=== PATIENT | female | born 1985 | race Two or more races ===

== ENCOUNTER 2024-06-14 09:29 | Emergency (ER) | payer BC, SELFPAY ==
[2024-06-14 09:47] VITALS: BP 143/103; PULSE 145; RESP 18; TEMP 37.3; O2SAT 98; BMI 30.6
--- NOTE | 2024-06-14 09:53 | XR_ITS ---
Examination: AP chest single view Technique one AP portable upright chest single view Exam date and time: June 14, 2024 1150 hours Comparison March 11, 2019 INDICATIONS: Onset chest pain today FINDINGS: Normal heart size. Lungs are clear. The osseous structures are intact IMPRESSION: No active disease
[2024-06-14 10:07] VITALS: PULSE 134
[2024-06-14 10:34] LABS: Basophils % (Auto) 0 % (0-2.5); Eosinophils # (Auto) 0.2 Thou/mm3 (0.0-0.5); Eosinophils % (Auto) 3 % (0-10); Hematocrit 43.8 % (36.0-46.0); Hemoglobin 14.9 g/dL (12.0-16.0); Immature Granulocytes % (Auto) 0 % (0-0); Immature Granulocytes Auto 0.02 Thou/mm3 (0.00-0.00); Lymphocytes # (Auto) 1.3 Thou/mm3 (1.0-4.8); Lymphocytes % (Auto) 20 % (10-50); Mean Corpuscular Hemoglobin 28.2 pg (25.0-35.0); Mean Corpuscular Volume 83 fL (80-100); Monocytes # (Auto) 0.4 Thou/mm3 (0.0-0.8); Monocytes % (Auto) 7 % (0-12); Neutrophils # (Auto) 4.7 Thou/mm3 (1.8-7.7); Neutrophils % (Auto) 71 % (37-80); Nucleated Red Blood Cell % 0 /100 WBC (0); Platelet Count 290 Thou/mm3 (140-440); Red Blood Count 5.28 Miln/mm3 (4.00-5.20); White Blood Count 6.7 Thou/mm3 (3.6-11.0)
--- NOTE | 2024-06-14 10:34 | EDNOTE_ITS ---
ED Psych RME/HPI General Chief Complaint: Suicidal Stated Complaint: SI; ON MEDICATION FOR SUICIDAL THOUGHTS Arrival date/time: 06/14/24 09:29 Limitations: no limitations RME / HPI RME / HPI Narrative: DR. FORREST MAIN ED EVALUATION: 38 year old female with past medical history significant for depression, takes zoloft and trazodone presents to the Emergency Department [facility] with complaints of depression and suicidal ideation, thoughts but no plan . Patient also reports palpitations and anxiety. She currently sees a therapist and psychiatrist, she saw her therapist last week. She lives with her and 2 kids. No visual hallucinations or auditory hallucinations. No other symptoms reported at this time. Currently on her menses. Other PMHx includes hypertension. Patient denies any tobacco, alcohol, or substance use. Related Data Home Medications ?Medication ?Instructions ?Recorded ?Confirmed methimazole 5 mg tablet 5 mg PO QDAY 04/13/20 propranolol 20 mg tablet 20 mg PO QDAY 04/13/2004/13 atenolol 100 mg tablet 100 mg PO BID 06/14/2406/14 sertraline 25 mg tablet 25 mg PO Q24H 06/14/2406/14 Allergies Allergy/AdvReac Type Severity Reaction Status Date / Time No Known Allergies Allergy Verified 06/14/24 09:32 Review of Systems Review of Systems Systems Reviewed: All systems reviewed, normal except as documented Narrative Review of Systems: GEN: No fever, no chills, no weight loss EYES: No discharge, no visual changes, no pain HEENT: No ear pain, no congestion, no sore throat PULM: No shortness of breath, no cough, no congestion CV: No chest pain, no dyspnea on exertion, + palpitations GI: No nausea, no vomiting, no diarrhea, no pain, no constipation : No frequency, no urgency and no dysuria MUSC/SKEL: No joint pain, no back pain SKIN: No rash PSYCH: No hallucinations, + depression, + suicidal ideation, + anxiety HEME/LYMPH: No easy bleeding or bruising tendencies NEURO: No weakness, no headache Past Medical History Past Medical History CARDIAC: Positive Cardiac Disorders (TACHYCARDIA DUE TO THYROID) and Hypertension (TAKES MED) GASTROINTESTINAL: Positive Gastrointestinal Disorders, Hiatal Hernia (IN THE PAST) and Gastroesophageal Reflux Disease (IN THE PAST) REPRODUCTIVE: Positive Previous Pregnancies (X2) MUSCULOSKELETAL: Positive Fractures (LEFT ARM HAD CAST) ENDOCRINE: Positive Endocrine Disorders and Hyperthyroidism PSYCHO/SOCIAL: Positive Depression (NO MEDS AT THIS TIME) OTHER HISTORY: Positive Chicken Pox and Cancer (POSSIBLE THYROID CA) Family History FAMILY HISTORY: Positive Family Psychiatric Problems (MOTHER, BROTHER (DEPRESSION,ANXIETY)), Family Respiratory Disorders (MOTHER (ASTHMA)), Family C ardiac Disorders (MOTHER,FATHER, BROTHER (HTN)) and Family Surgery (MOTHER) Surgical History SURGICAL: Positive Tubal Ligation Social History SMOKING STATUS: Never smoker SUBSTANCE USE: does not use ALCOHOL: Never ED Exam General Limitations: Present no limitations General appearance: Present alert, in no apparent distress and anxious Head Head exam: Present atraumatic, normocephalic and normal inspection Eye Eye exam: Present normal appearance, PERRL and EOMI ENT ENT exam: Present normal exam, normal oropharynx and mucous membranes moist Neck Neck exam: Present normal inspection, full ROM and trachea midline Chest Chest inspection: Present normal inspection and symmetric chest wall rise Respiratory Respiratory exam: Present normal lung sounds bilaterally Cardiovascular Cardiovascular exam: Present regular rate, normal rhythm and normal heart sounds Abdominal Exam Abdominal exam: Present soft and normal bowel sounds Extremities Exam Extremities exam: Present normal inspection and full ROM Back Exam Back exam: Present normal inspection and full ROM Neurological Exam Neurological exam: Present alert, oriented X3 and CN II-XII intact Psychiatric Psychiatric exam: Present depressed and anxious Skin Skin exam: Present warm, dry, intact and normal color Course Quality Measures none Orders Category Date Time Status Family Resource Management Professor NOW Care 06/14/24 09:53 Active EKG (ED ONLY) *Do not use* NOW Care 06/14/24 09:53 Completed Insert IV NOW Care 06/14/24 09:53 Active Diet Regular Diet 06/14/24 Lunch Active Discharge Routine Discharge 06/14/24 14:19 Active EKG (ED Only) Stat Exams 06/14/24 09:53 Ordered XR chest 1V portable Stat Exams 06/14/24 09:53 Completed Alcohol, Urine Stat Lab 06/14/24 10:49 Completed CBC Stat Lab 06/14/24 10:22 Completed Comprehensive Metabolic Panel Stat Lab 06/14/24 10:22 Completed Drug Screen,Urine Stat Lab 06/14/24 10:49 Completed Free T4 (Free Thyroxine) Stat Lab 06/14/24 10:22 Completed HCG Qualitative,Urine Stat Lab 06/14/24 10:49 Completed TSH [Thyroid Stimulating Hormone] Stat Lab 06/14/24 10:22 Completed Troponin I Stat Lab 06/14/24 10:22 Completed Sodium Chloride 0.9% 1000 ml [Ns] 1,000 ml Med 06/14/24 09:54 Discontinued IV 999 mls/hr Reevaluation(s) Reevaluation #1: Patient is medically cleared. Time: 11:43 Reevaluation #2: Mental health cleared the patient to go home. Safety plan in place including the will take this week off from work to support and patient has follow up appointment Friday with mental [facility]. Time: 14:17 Vital Signs Vital signs: Vital Signs Temperature 99.2 F 06/14/24 09:47 Pulse Rate 145 H 06/14/24 09:47 Respiratory Rate 18 06/14/24 09:47 Blood Pressure 143/103 H 06/14/24 09:47 Pulse Oximetry (%) 98 06/14/24 09:47 Oxygen Delivery Method Room Air 06/14/24 09:47 Procedures -ED EKG Interpretation #1: Date of EK06/14/24 Time of EK:51 Rate: 135 Interpretation: Interpreted by me Additional EKG comment: sinus tachycardia, rate 135, no ischemia, normal intervals Psych MDM Narrative MDM Narrative:: I, Kylah Arias am scribing for and in the presence of Dr. Forrest. Patient was seen by mental health Patient was cleared by [facility] She does live with her who is engaged to stay with her To bring her back again to the follow-up with the health as outpatient And to stay with her at this time Patient was accepting to follow-up with mental health Patient data External records reviewed:: EMS form Clinical information provided by:: patient and EMS Social determinants that could affect healthcare access:: none Patient has the following chronic illnesses:: Depression, takes zoloft and trazodone, and hypertension. How is presenting disease/condition affected by chronic disease/condition?: caused by Evaluation data The following diagnostics were reviewed and interpreted by me:: lab results, radiology exam(s) and EKG tracing(s) Lab and/or radiology exams considered but not ordered:: none Interpretation Summary: Procedure(s): XR chest 1V portable Accession Number(s): [id number] cc: Usman (BUYER ASSISTANT),Rafa LISA; Andrei Marin MD; Kristofer Salomon MD~ Examination: AP chest single view Technique one AP portable upright chest single view Exam date and time: June 14, 2024 1150 hours Comparison March 11, 2019 INDICATIONS: Onset chest pain today FINDINGS: Normal heart size. Lungs are clear. The osseous structures are intact IMPRESSION: No active disease Dictated By: Andrei Marin MD Medications / Prescriptions Medications or Prescriptions considered but not ordered:: none Medication administrations:: Medication Administration History Discontinued Medications Sodium Chloride (Ns) 1,000 mls @ 999 mls/hr IV .Q1H1M ONE Stop: 06/14/24 10:54 Last Infusion: 06/14/24 11:48 Dose: Infused Documented By: Admin: 06/14/24 10:40 Dose: 999 mls/hr Documented By: OMAR see above Consultations Consultation(s) initiated? (list below): No Diagnosis Psych Differential Diagnosis: suicidal ideation, depression and acute anxiety Most likely diagnosis given after review of the tests above:: Depression Anxiety Admission Indicated Admission indicated?: not indicated Admission Request Was there a request for admission?: No Disposition Plan Disposition Plan: Discharge Discharge Attestation Discharge Attestation: The patient and all family members were given an opportunity to ask questions and understood the discharge instructions. Discharge instructions specifically effects, indications for sooner follow up or return to the emergency department, and the expected course of current diagnosis. Patient condition: Stable Discharge Plan Plan Patient Disposition: HOME (Self Care) Patient condition on transfer: Stable Prescriptions/Referrals Prescriptions/Med Rec: No Action methimazole 5 mg Tablet 5 mg PO QDAY propranolol 20 mg tablet 20 mg PO QDAY sertraline 25 mg tablet 25 mg PO Q24H Patient Comments: take 1 AND 1/2 tablet by mouth IN THE MORNING with food to AVOID GI UPSET atenolol 100 mg tablet 100 mg PO BID Patient Comments: take 1 tablet by mouth twice a day Referrals: Kristofer Salomon MD [Primary Care Provider] - In 1 week Problem List Clinical Impression: Depression, Anxiety, Suicidal ideation Patient/Caregiver Discharge Instructions Discharge Activity: activity as tolerated and other Other Activity Instructions:: Make sure to follow the instructions given to you by mental health Make sure to have your spouse with you until further evaluation is done by mental health Print Language: Azeri Stand Alone Forms: Rosmery Award Info., Work/School Release, Patient Portal Info Letter
[2024-06-14] MEDS: SODIUM CHLORIDE 0.9% 1000 ML 1,000 ML 999 ML IV (10:40)
[2024-06-14 10:58] LABS: Alanine Aminotransferase 20 U/L (10-49); Albumin, Serum 4.9 gm/dL (3.5-5.0); Albumin/Globulin Ratio 1.6 (1.2-2.2); Alkaline Phosphatase 91 U/L (46-116); Anion Gap 10 (7-16); Aspartate Amino Transferase 21 U/L (0-34); BUN/Creatinine Ratio 16 Ratio (12-20); Bilirubin,Total 0.5 mg/dL (0.3-1.2); Blood Urea Nitrogen 13 mg/dL (9-23); Calcium 9.5 mg/dL (8.3-10.6); Calcium (Corrected) 9.5 mg/dL (8.5-10.1); Chloride 105 mMol/L (98-107); Creatinine (Component) 0.8 mg/dL (0.6-1.3); Estimated Creatinine Clearance 80.4 mL/min (>60); Free T4 (Free Thyroxine) 1.13 ng/dL (0.89-1.76); Globulin 3.1 gm/dL (2.3-3.5); Glucose 89 mg/dL (74-106); Osmolality,Calculated 280 (275-295); Potassium 3.7 mMol/L (3.4-5.1); Sodium 141 mMol/L (136-145); Thyroid Stimulating Hormone 0.63 uIU/mL (0.55-4.78); Troponin I < 0.002 ng/mL (0.0-0.045); eGFR > 60 See Note
[2024-06-14 11:27] LABS: HCG Qualitative,Urine Negative
[2024-06-14 11:46] LABS: Alcohol, Urine Negative (Negative); Amphetamine/Methamp Scrn,U Negative (Negative); Barbiturate Screen,Urine Negative (Negative); Benzodiazepines Screen,Urine Negative (Negative); Benzoylecgonine Screen, Ur Negative (Negative); Fentanyl Screen,Urine Negative (Negative); Opiate Screen,Urine Negative (Negative); THC Screen,Urine Negative (Negative)
[2024-06-14 12:00] VITALS: BP 134/101; PULSE 102; RESP 16; O2SAT 100
[2024-06-14 13:31] VITALS: BP 136/98; PULSE 85; RESP 15; TEMP 36.4; O2SAT 98
--- NOTE | 2024-06-14 13:42 | PC.SS ---
IRVIN Camejo, met with the patient to complete a mental health evaluation. The patient appears alert and oriented to person, place and situation. Also present in the room is MOBILE GAME ENGINEER Student, Adilia Albert and patient's spouse, Zhen Sanchez as the patient allowed him to be present. Patient reports she was brought in by her Zhen to the ED. The patient indicates she was having a bad day . When asked further, the patient informed she gets triggered by her work as her job is toxic . The patient reports she works at [employer] in [place]. The patient reports living at home with spouse Zhen and two children of ages 17 and 8. The patient reports being independent with ADL's and denies the use of DME. Patient reports being followed by Kristofer Salomon for primary care. Patient reports being diagnosed with having high blood pressure. Per patient she has a history of depression and anxiety. 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 The patient reports she was diagnosed this year by her telehealth providers with [facility]. Patient reports she is connected to telehealth services with therapist named Carly and psychiatrist named Socorro. The patient reports she is seen every two weeks for services. Per patient she is currently taking Zoloft 25mg 1x1 1/2 during the day and Trazadone 50mg 1x a day at night. Patient reports her Zoloft medication was increased by half milligram within the last two weeks. Per patient she denies any previous suicide attempts. The patient also denies being placed on a 5150 hold in the past. Today, the patient is denying suicidal ideation and homicidal ideation. The patient is also denying audio and visual hallucinations. The patient presents emotional throughout the assessment, patient tearful when expressing in regards to her mental health. Patient reports she yamil by reading and reports having a good support at home from her , Zhen and her mother. The patient refers to her children and spouse as her 'safe heaven' and her reason to live. The patient is able to engage in assessment appropriately, she displays appropriate eye contact and appears to be truthful in her current symptoms. The patient is agreeable with formulating a safety plan if able to and follow up with mental health services. Patient reports having reasons to live and no intent or plan to harm herself. Additionally, the patient denies substance use and her toxicology report is negative for substances. In speaking with patient's spouse, Zhen, he reports that he brought the patient into the ED for further help and evaluation. Zhen reports the patient has presented down the last two days and believes she needs to speak to a mental health provider in person. Zhen reports he is unsure if the patient's current services are working as effective they are provided via online instead on in person connection with therapy services. Zhen reports he would be agreeable to a safety plan. Zhen is aware of what a safety plan consist of: 72hr support, mental health appointment follow up, medication administration and ensuring that firearms, weapons in the home are locked and put away out of reach of the patient. Zhen is agreeable and informs he is taking the week of from work to be home with his to provide her the support that she needs. Zhen informs the patient's mother is also available for support as he wants to make sure the patient is not left alone before an appointment is established for her. After clinical consultation with PRODUCTION ENGINEER, Keren Murcia, it was decided that the patient could be released on a safety plan. The safety plan to consist of spouse, Zhen being agreeable with being responsible for the patient after ED discharge, ensuring patient follow up with mental health services/appointment on 06/16/24 at 9:30am with Provider Hector Calabrese with [facility] in [place] for an in person appointment. Both parties verbalized understanding, should patient need further evaluation, the patient could return to the ED, contact law enforcement in case of a crisis situation or worsening symptoms. Zhen confirms the home firearms are not accessed by the patient and agreeable to with medication administration and monitoring of the patient. Patient was also provided with community resources including mental health services, crisis and emergency contact information. Both parties verbalized being confident with safety plan and patient was provided with education on healthy coping skills. All questions answered with patient and spouse Zhen present. ED attending provider Lon and bed side ELIDA Craig updated on safety plan disposition.
[2024-06-14 15:18] VITALS: BP 137/95; PULSE 105; RESP 18; TEMP 36.6; O2SAT 97
== END 2024-06-14 15:20 | disposition home or self-care (01) ==
PROVIDERS: Nurse Practitioner Primary Care; Emergency Provider Emergency Medicine; PCP Family Medicine
DX: R45.851 Suicidal ideations (principal); F41.9 Anxiety disorder, unspecified; F32.A Depression, unspecified; R07.9 Chest pain, unspecified; R00.2 Palpitations; R00.0 Tachycardia, unspecified; I10 Essential (primary) hypertension
CPT/HCPCS: 36415; 71045; 80053; 80307; 80320; 81025; 84439; 84443; 84484; 85025; 90839; 93005; 96127; 96360; 99284; J7030; G0480